=== PATIENT | female | born 1955 | race African-American/Black ===

== ENCOUNTER 2020-11-05 07:10 | Day surgery (SDC) | payer OTHER, BC ==
[2020-11-04 16:31] VITALS: BMI 25.2
[2020-11-05] MEDS ORDERED: LIDOCAINE HCL/PF 2% SDV 5ML VIAL ONE (07:39)
[2020-11-05] MEDS ORDERED: PROPOFOL 20 ML ONE ×3 (07:39)
[2020-11-05 09:07] VITALS: TEMP 99.2
[2020-11-05 09:26] VITALS: BP 110/75; PULSE 79
== END 2020-11-05 09:25 | disposition home or self-care (01) ==
LOC: FASU-ENDO 07:10
PROVIDERS: ATTEND Internal Medicine Gastroenterology
PROC: 0DBN8ZX Excision of Sigmoid Colon, Via Natural or Artificial Opening Endoscopic, Diagnostic (ICD-10-PCS; principal; 2020-11-05 08:24)
DX: K63.5 Polyp of colon (principal); K57.30 Diverticulosis of large intestine without perforation or abscess without bleeding; K64.8 Other hemorrhoids; Z80.0 Family history of malignant neoplasm of digestive organs
CPT/HCPCS: 88305-TC